=== PATIENT | male | born 1975 | race Caucasian/White ===

== ENCOUNTER → 2017-03-18 | Outpatient (CLI) | payer OTHER ==
--- NOTE | 2017-03-18 11:20 | MRI ---
MRI SPINE LUMBAR WITHOUT CONTRAST CLINICAL HISTORY: 41-year-old male with low back pain, numbness and tingling. COMPARISON: None. Technique: Multiplanar, multisequence MRI images of the lumbar spine were obtained without the admi nistration of contrast. FINDINGS: The most caudad, fully-formed intervertebral disc will be labeled L5-S1 for the purpose of this dictation. Straightening of the lumbar lordosis as imaged. Alignment is maintained. Chronic we dging of the superior endplate L2 of approximately 25%. Remaining vertebral body heights are preserv ed. Loss of intervertebral disc height at L5-S1 with endplate erosions. There is loss of disc signal from L4-S1. Cord signal is normal. The conus medullaris is normal in signal characteristics and mor phology and terminates at the L1-2 level. T11-T12: Imaged in the sagittal plane only without central canal or neural foraminal stenosis. T12-L1: Mild facet hypertrophy with thickened ligamentum flavum without central canal or neural fora isabel stenosis. L1-L2: Symmetric disc bulge with mild facet arthropathy and thickened ligamentum flavum without sign ificant central canal or neural foraminal stenosis. L2-L3: Symmetric disc bulge with facet arthropathy and thickened ligamentum flavum without significa nt central canal or neural foraminal stenosis. L3-L4: Moderate to severe facet arthropathy with thickened ligamentum flavum with small symmetric di sc bulge without significant central canal or neural foraminal stenosis. L4-L5: Linear hyper intensity within the annular fibers centrally consistent with fissure. Large sym metric disc bulge with severe facet arthropathy and thickened ligamentum flavum. This produces sever e bilateral subarticular recess stenosis with contact of the ventral and dorsal aspect of the transi ting L5 nerve roots bilaterally. There is mild bilateral neural foraminal stenosis with buckled liga mentum flavum contacting the dorsal aspect of the exiting L4 nerve roots bilaterally central canal i s widely patent. L5-S1: Pulse repeat with thickened ligamentum flavum with large symmetric disc bulge at. Disc bulge contacts in produces mild deformity of the ventral aspect of the exiting L5 nerve roots bilaterally. No significant neural foraminal or central canal stenosis. Paraspinous soft tissues are unremarkable. IMPRESSION: 1. Multilevel degenerative change most significant from L4-S1 with annular fissure L4-L5 and contact of the L4-L5 and nerve roots bilaterally with mild deformity at L5-S1 along the ventral aspect of t he exiting L5 nerve roots. 2. See level by level descriptions above. Reported By:
== END ==
LOC: RAD 09:12
PROVIDERS: ATTEND Orthopaedic Surgery
DX: M51.37 Other intervertebral disc degeneration, lumbosacral region (principal)
CPT/HCPCS: 72148